=== PATIENT | male | born 1975 | race Caucasian/White ===

== ENCOUNTER → 2017-09-04 | Outpatient (CLI) | payer BC ==
--- NOTE | 2017-09-04 11:28 | ECHOS ---
STRESS ECHOCARDIOGRAM DATE OF SERVICE: 09/04/2017 INDICATIONS: Chest pain. MEDICATIONS: Advair, omeprazole. BASELINE HEART RATE: 84 BASELINE BLOOD PRESSURE: 136/62 MAXIMUM HEART RATE: 106 MAXIMUM BLOOD PRESSURE: 177/69 85% MPHR: 153 100% MPHR: 180 METS: 10 MAXIMUM STAGE REACHED: III TOTAL EXERCISE TIME: 9 minutes CLINICAL INFORMATION: Baseline EKG shows sinus rhythm, normal axis, normal intervals. Patient exercised on Jarett protocol for a total of 9 minutes achieving 10 METs, 92% of predicted maximal heart rate without chest pain or diagnostic ST-segment depression. Baseline echo shows normal left ventricular size, wall motion and systolic function. Postexercise, there is normal hyperdynamic response of all segments of myocardium noted. CONCLUSIONS: 1. Good exercise tolerance. 2. Negative stress test by EKG criteria. 3. Negative stress echo. DARRELL / IJN: [id number] /
== END | disposition home or self-care (01) ==
LOC: RADNMMAIN 09:44
PROVIDERS: ATTEND Family Medicine
DX: R00.2 Palpitations (principal)
CPT/HCPCS: 93017; 93350

== ENCOUNTER → 2019-02-02 | Outpatient (CLI) | payer BC ==
--- NOTE | 2019-02-03 09:04 | XR ---
EXAM TYPE: LUMBAR SPINE X RAY SERIES COMPARISON: NONE HISTORY: Sciatica TECHNIQUE: Three views are submitted. FINDINGS: Alignment is anatomic. The pedicles are intact. The transverse processes are intact. There is no s pondylolysis or spondylolisthesis. Hypertrophic spurring noted anteriorly at multiple levels. IMPRESSION: 1. Multilevel hypertrophic spurring. Correlate with MRI if there is concern for disc herniation..
== END | disposition home or self-care (01) ==
LOC: RADXRMAIN 16:34
PROVIDERS: ATTEND Family Medicine
DX: M77.8 Other enthesopathies, not elsewhere classified (principal)
CPT/HCPCS: 72100

== ENCOUNTER → 2019-02-12 | Outpatient (CLI) | payer BC ==
--- NOTE | 2019-02-13 16:46 | MR ---
EXAMINATION TYPE: MR lumbar spine wo con DATE OF EXAM: 02/12/2019 COMPARISON: None HISTORY: LBP, rt sciatica x 2 mos TECHNIQUE: Multiplanar, multisequence images of the lumbar spine were acquired. The vertebra have normal alignment. There is some decreased signal in the L4-5 disc. There is posteri or disc herniation at L4-5 centrally. There is developmentally adequate spinal canal. There is no sig nificant spinal stenosis. Lumbar nerve roots appear normal. The neural foramina are fairly well-maint ained. There is no compression fracture. There is no lumbar paraspinal mass. I see no focal bone dest ruction. IMPRESSION: Posterior central mild to moderate L4-5 lumbar disc herniation. No significant impingement on the spi nal canal.
== END | disposition home or self-care (01) ==
LOC: RADMRIMAIN 20:33
PROVIDERS: ATTEND Physician Assistant
DX: M51.26 Other intervertebral disc displacement, lumbar region (principal)
CPT/HCPCS: 72148